=== PATIENT | male | born 1975 | race Caucasian/White ===

== ENCOUNTER 2019-03-29 09:19 | Emergency (ER) | payer SELFPAY ==
[~2019-03-29] VITALS: Ht 170.2 cm; Wt 82.0 kg
[2019-03-29] MEDS ORDERED: BISM262T15 PO (09:39)
[2019-03-29 10:37] LABS: CLARITY URINE CLEAR (CLEAR); COLOR URINE YELLOW (YELLOW); KETONES URINE NEGATIVE (NEGATIVE); LEUKOCYTE ESTERASE URINE NEGATIVE (NEGATIVE); NITRITE URINE NEGATIVE (NEGATIVE); OCCULT BLOOD URINE 2+ (NEGATIVE); PH URINE 7.5 (4.5-8.0); PROTEIN URINE NEGATIVE (NEGATIVE); SPECIFIC GRAVITY URINE 1.012 (1.005-1.030); UROBILINOGEN URINE 0.2 E.U./dL (0.2-1.0)
[2019-03-29 10:44] LABS: HEMOGLOBIN. 16.2 g/dL (14.0-18.0); MEAN CORPUSCULAR HEMOGLOBIN 32.7 pg (28.0-32.0); MEAN CORPUSCULAR VOLUME 94.9 fL (80.0-94.0); MEAN PLATELET VOLUME 9.4 fl (7.4-10.4); PLATELET 191 x1000/uL (130-400); RED BLOOD CELL COUNT 4.95 mill/uL (4.7-6.1); RED CELL DISTRIBUTION WIDTH 12.8 % (11.6-14.6)
[2019-03-29 10:45] LABS: CHLORIDE 104 mEq/L (98-107)
[2019-03-29] MEDS ORDERED: SODIUM CHLORIDE 0.9% 1,000 ML IV ONE (11:18)
[2019-03-29] MEDS ORDERED: MORPHINE SULFATE 4 MG/ML CPJ (NOT FOR IM USE) IV STA (11:18)
[2019-03-29] MEDS ORDERED: ONDANSETRON HCL 4MG/2ML INJ IV STA (11:18)
[2019-03-29 11:30] VITALS: BP 144/56
[2019-03-29 12:29] LABS: PLATELET ESTIMATE NORMAL
[2019-03-29] MEDS ORDERED: IOHEXOL-300 100 ML BOTTLE ONE (13:00)
== END 2019-03-29 14:40 | disposition home or self-care (01) ==
LOC: ER 14:36
DX: N20.0 Calculus of kidney (principal)
CPT/HCPCS: 36415; 74177; 80053; 81003; 83690; 85025; 96361; 96374; 96375; 99284; J2270; J2405; J7030; Q9967

== ENCOUNTER 2020-10-29 06:38 | Emergency (ER) | payer MEDICAID ==
[~2020-10-29] VITALS: Ht 170.2 cm; Wt 86.0 kg
[~2020-10-29 06:38] MED LIST: BISM262T15 PO
[2020-10-29] MEDS ORDERED: LORAZEPAM 1MG TABLET PO ONE (08:15)
[2020-10-29] MEDS ORDERED: HYDROCODONE/ACETAMINOPHEN 5/325MG TABLET PO ONE (08:15)
[2020-10-29] MEDS: VISCOUS LIDOCAINE 2% 15 ML UDC MM PRN ×2 (09:04→09:16)
[2020-10-29] MEDS ORDERED: CEPH500C2 MT (09:27)
[2020-10-29] MEDS ORDERED: TAMS-11 MT (09:30)
[2020-10-29 09:50] VITALS: BP 145/89
== END 2020-10-29 10:10 | disposition home or self-care (01) ==
LOC: ER 06:38
DX: R33.9 Retention of urine, unspecified (principal); Z87.442 Personal history of urinary calculi
CPT/HCPCS: 51702; 99284